=== PATIENT | female | born 1960 | race Caucasian/White ===

== ENCOUNTER 2022-07-08 14:16 | Outpatient (CLI) | payer BC, SELFPAY ==
[2022-07-08 19:39] LABS: Basophils Percent Auto 0.7 % (0.2-1.2); Eosinophils Absolute Auto 0.1 K/mm3 (0-0.3); Eosinophils Percent Auto 1.8 % (0-4.4); Hematocrit 40.1 % (37.0-47.0); Hemoglobin 12.8 g/dL (12.0-15.0); Immature Granulocyte Absolute 0.01 K/mm3 (0.00-0.031); Immature Granulocyte Percent A 0.2 % (0-0.5); Lymphocytes Absolute Auto 0.73 K/mm3 (0.9-3.2); Lymphocytes Percent Auto 16.5 % (18.3-44.2); Mean Corpuscular HGB Conc 31.9 g/dl (32-36); Mean Corpuscular Hemoglobin 30.4 pg (26-34); Mean Corpuscular Volume 95.2 fl (80-100); Mean Platelet Volume 10.2 fl (7.4-10.4); Monocytes Absolute Auto 0.4 K/mm3 (0.1-0.6); Monocytes Percent Auto 9.7 % (2.6-8.5); Neutrophils Absolute Auto 3.2 K/mm3 (1.3-6.7); Neutrophils Percent Auto 71.1 % (45.5-73.1); Platelet Count Result 265 k/mm3 (150-375); Red Blood Count 4.21 M/mm3 (4.2-5.4); Red Cell Distribution Width 13.2 % (11.5-14.5); White Blood Count 4.4 K/mm3 (4.5-10.0)
[2022-07-08 19:47] LABS: Alanine Aminotransferase 16 U/L (6-35); Albumin Level 4.4 g/dL (3.5-5.1); Alkaline Phosphatase 124 U/L (38-126); Anion Gap 7 mmol/L (8-16); Aspartate Amino Transferase 34 U/L (14-36); Bilirubin,Total 0.7 mg/dL (0.2-1.3); Blood Urea Nitrogen 14 mg/dL (7-17); Carbon Dioxide 30 mmol/L (22-30); Chloride 106 mmol/L (98-107); Cholesterol 147 mg/dL (0-200); Creatine Kinase 56 U/L (30-135); Estimated Glomerular Filt Rate > 60; Glucose 94 mg/dL (65-110); HDL Direct 54 mg/dL; Potassium 4.2 mmol/L (3.4-5.0); Sodium 143 mmol/L (137-145); Triglycerides 117 mg/dL (<150)
[2022-07-08 19:56] LABS: LDL Cholesterol Direct 58 mg/dL
[2022-07-08 20:30] LABS: Erythrocyte Sedimentation Rate 16 mm/hr (0-20)
== END 2022-07-08 14:17 | disposition home or self-care (01) ==
LOC: ANHBWCLAB 14:18
PROVIDERS: PCP Family Medicine; Visit Provider Family Medicine
DX: Z00.00 Encounter for general adult medical examination without abnormal findings (principal); M79.10 Myalgia, unspecified site
CPT/HCPCS: 36415; 80053; 80061; 82550; 84443; 85025; 85652; 86140

== ENCOUNTER 2023-09-02 11:51 | Outpatient (CLI) | payer BC, SELFPAY ==
[2023-09-02 19:04] LABS: Hematocrit 40.5 % (37.0-47.0); Hemoglobin 12.7 g/dL (12.0-15.0); Mean Corpuscular HGB Conc 31.4 g/dl (32-36); Mean Corpuscular Hemoglobin 30.5 pg (26-34); Mean Corpuscular Volume 97.1 fl (80-100); Platelet Count Result 235 k/mm3 (150-375); Red Blood Count 4.17 M/mm3 (4.2-5.4); Red Cell Distribution Width 13.1 % (11.5-14.5); White Blood Count 3.9 K/mm3 (4.5-10.0)
[2023-09-02 19:10] LABS: Alanine Aminotransferase 11 U/L (6-35); Albumin Level 4.5 g/dL (3.5-5.1); Alkaline Phosphatase 96 U/L (38-126); Anion Gap 5 mmol/L (4-12); Aspartate Amino Transferase 41 U/L (14-36); Bilirubin,Total 0.7 mg/dL (0.2-1.3); Blood Urea Nitrogen 17 mg/dL (7-17); Calcium 9.3 mg/dL (8.4-10.2); Carbon Dioxide 31 mmol/L (22-30); Chloride 104 mmol/L (98-107); Cholesterol 150 mg/dL (0-200); Estimated Glomerular Filt Rate > 60; Glucose 77 mg/dL (65-110); HDL Direct 54 mg/dL; Potassium 3.9 mmol/L (3.4-5.0); Sodium 140 mmol/L (137-145); Triglycerides 98 mg/dL (<150)
[2023-09-02 19:23] LABS: LDL Cholesterol Direct 68 mg/dL
== END 2023-09-02 11:52 | disposition home or self-care (01) ==
LOC: ANHBWCLAB 11:53
PROVIDERS: PCP Family Medicine; Visit Provider Family Medicine
DX: Z00.00 Encounter for general adult medical examination without abnormal findings (principal); I10 Essential (primary) hypertension; M79.10 Myalgia, unspecified site
CPT/HCPCS: 36415; 80053; 80061; 85027

== ENCOUNTER 2024-02-17 12:14 | Outpatient (CLI) | payer BC, SELFPAY ==
[2024-02-17 18:39] LABS: Hematocrit 38.8 % (37.0-47.0); Hemoglobin 12.3 g/dL (12.0-15.0); Mean Corpuscular HGB Conc 31.7 g/dl (32-36); Mean Corpuscular Hemoglobin 30.4 pg (26-34); Mean Platelet Volume 10.4 fl (7.4-10.4); Platelet Count Result 256 k/mm3 (150-375); Red Blood Count 4.04 M/mm3 (4.2-5.4); White Blood Count 4.5 K/mm3 (4.5-10.0)
[2024-02-17 19:01] LABS: Alanine Aminotransferase 15 U/L (6-35); Albumin Level 4.3 g/dL (3.5-5.1); Alkaline Phosphatase 100 U/L (38-126); Anion Gap 10 mmol/L (4-12); Aspartate Amino Transferase 46 U/L (14-36); Bilirubin,Total 0.6 mg/dL (0.2-1.3); Blood Urea Nitrogen 17 mg/dL (7-17); Calcium 9.2 mg/dL (8.4-10.2); Carbon Dioxide 27 mmol/L (22-30); Chloride 104 mmol/L (98-107); Estimated Glomerular Filt Rate > 60; Glucose 119 mg/dL (65-110); Potassium 3.8 mmol/L (3.4-5.0); Sodium 141 mmol/L (137-145)
== END 2024-02-17 12:15 | disposition home or self-care (01) ==
LOC: ANHBWCLAB 12:16
PROVIDERS: PCP Family Medicine; Visit Provider Family Medicine
DX: Z00.00 Encounter for general adult medical examination without abnormal findings (principal); I10 Essential (primary) hypertension; E66.9 Obesity, unspecified; G25.81 Restless legs syndrome; M79.10 Myalgia, unspecified site
CPT/HCPCS: 36415; 80053; 84443; 85027

== ENCOUNTER 2024-03-13 10:46 | Outpatient (CLI) | payer BC, SELFPAY ==
--- NOTE | ~2024-03-13 | US_ITS ---
Limited ABDOMINAL ULTRASOUND Ordering provider: Boyd Layton MD History: . R74.01 - Elevation of levels of liver transaminase levels . Comparison: None. FINDINGS: LIVER: Normal size. Fat infiltration of the liver.. No focal hepatic lesions or perihepatic fluid col lections are identified. GALLBLADDER: Gallbladder sludge is noted. No evidence for stones, gallbladder wall thickening or ronny cholecystic fluid collections. A negative sonographic Mixon's sign was noted. BILIARY DUCTS: No evidence for intra or extrahepatic biliary dilation. Common bile duct measures 3 mm in diameter which is within normal limits. PANCREAS: Partially seen. Otherwise, Normal echotexture and size. FREE FLUID: None. IMPRESSION: Gallbladder sludge. Fat infiltration of the liver. Otherwise, normal limited ultrasound of the abdom en. Reviewed, dictated and finalized at location A. NERY OPERATOR COKING IMPRESSION: Gallbladder sludge. Fat infiltration of the liver. Otherwise, normal limited u ltrasound of the abdomen.
== END 2024-03-13 10:47 | disposition home or self-care (01) ==
LOC: GOSHIMG 10:46
PROVIDERS: PCP Family Medicine; Visit Provider Family Medicine
DX: K82.8 Other specified diseases of gallbladder (principal); K76.0 Fatty (change of) liver, not elsewhere classified; R74.01 Elevation of levels of liver transaminase levels
CPT/HCPCS: 76705

== ENCOUNTER 2024-09-18 11:46 | Outpatient (CLI) | payer BC, SELFPAY ==
--- OUTSIDE RECORDS SUMMARY | 2024-09-18 12:04 | XMS_ITS | Clinical Summary ---
Author Organization [facility] Address [address] [place] [address] Care Team Providers Care Fashion Buying Internship Name Role Phone No, Physician Primary Care Provider [phone] Allergies No known active allergies Medications phentermine 37.5 mg capsule 37.5 MG ORALLY DAILY MUST ADMINISTER 30 MINUTES BEFORE OR 1-2 HOURS AFTER BREAKFAST Active Active Problems Problem Noted Date Diagnosed Date Closed left hip fracture, initial encounter 09/17 Closed fracture of neck of left femur 10/03/2023 Medical History Medical History Date Comments Hypertension Social History Tobacco Use Types Packs/Day Years Used Date Smoking Tobacco: Every Day Cigarettes AUDIT-C Answer Date Recorded Q1: How often do you have a drink containing alcohol? Never 10/04/2023 Q2: How many drinks containi ng alcohol do you have on a typical day when you are drinking? Patient does not drink Q3: How often do you have si x or more drinks on one occasion? Never 10/04/2023 Personal Safety Answer Date Recorded Have you ever been in or are you currently in a harmful physical or emotional relationship or is someone making you feel afraid or unsafe? 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 Gender Identity Female 10/05/2023 12:41 PM CDT Sexual Orientation Straight 10/05/2023 12 :41 PM CDT Obstetrics History Last Filed Vital Signs Vital Sign Reading Time Taken Comments Blood Pressure 125/60 10/06/2023 7:45 AM CDT Pulse 76 10/06/2023 7:45 AM CDT Temperature 37 C (98.6 F) 10/06/2023 7:45 AM CDT Respiratory Rate 16 10/06/2023 7:45 AM CDT Oxygen Saturation 97% 10/06/2023 7:45 AM CDT Inhaled Oxygen Concentration - - Weight 90.7 kg (200 lb) 10/03/2023 2:10 PM CDT Height 160 cm (5' 2.99) 10/03/2023 2:10 PM CDT Body Mass Index 35.44 10/03/2023 2:10 PM CDT Plan of Treatment Health Maintenance Due Date Last Done Comments Breast Cancer Screening-Mammogram 1960 Cervical Cancer Screening 1960 Colon Cancer Screening-Colonoscopy 1960 Depression Screening 1960 Hepatitis C Screening 1960 DTaP/Tdap/Td Vaccine (1 - Tdap) 1971 Hepatitis B Screening 1978 Regular Well Visit/Exam 18-64 1978 Pneumococcal vaccine <65 (1 of 2 - PCV) 1979 Zoster Vaccine (1 of 2) 2010 Influenza Vaccine (Season Ended) 2024 02/03/20 23, 02/18/2021 Medical Devices Implanted Type Area [employer]er Cook Device Identifier Shelf Expiration Date Model / Serial / Lot Synthes 7.3mm 8.2mm 2.9mm 80mm Cannulated Self Tap Self Drill 209.680 - [id number] Implanted:Qty: 1 on 10/04/2023 by Theo Johnston MD at [facility] Left: Hip Synthes I 209.680 / / Synthes 13mm Washer Orthopedic Stainless Steel Nonsterile 6.5/7/7.3mm 219.99 - [id number] Implanted:Qty: 3 on 10/04/2023 by Theo Johnston MD at [facility] Left: Hip Synthes I 219.99 / / Synthes 7.3mm 8.2mm 2.9mm 85mm Cannulated Self Tap Self Drill 209.685 - [id number] Implanted:Qty: 1 on 10/04/2023 by Theo Johnston MD at [facility] Left: Hip Synthes I 209.685 / / Synthes 7.3mm 8.2mm 2.9mm 75mm Cannulated Self Tap Self Drill 209.675 - [id number] Implanted:Qty: 1 on 10/04/2023 by Theo Johnston MD at [facility] Left: Hip Synthes I 209.125 / / Insurance [facility] [employer] OOS [employer] OOS [employer] [facility] OOS WORK[employer] COMPENSATION GENERIC Advance Directives For more information, please contact: [phone] * Full Code (Latest Code Status on File) Date Activated Date Inactivated Comments 10/03/2023 2:27 PM 10/06/2023 3:06 PM Care Teams Fashion [employer]ying Internship Relationship Specialty Start Date End Date No, Physician PCP - General 10/14/21
--- OUTSIDE RECORDS SUMMARY | 2024-09-18 12:04 | XMS_ITS | Referral Summary ---
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 Gender Identity Female 10/05/2023 12:41 PM CDT Sexual Orientation Straight 10/05/2023 12 :41 PM CDT Last Filed Vital Signs Vital Sign Reading [...] 10/03/2023 2:10 PM CDT Plan of Treatment Not on file Medical Devices Implanted Type Area As400 Operator Device Identifier Shelf Expiration Date Model / Serial / Lot Synthes 7.3mm 8.2mm 2.9mm 80mm Cannulated Self Tap Self Drill 209.680 - [id number] Implanted:Qty: 1 on 10/04/2023 by Theo Johnston MD at [facility] Left: Hip Synthes I 209.680 / / Synthes 13mm Washer Orthopedic Stain[employer] Nonsterile 6.5/7/7.3mm 219.99 - [id number] Implanted:Qty: 3 on 10/04/2023 by Theo Johnston MD at [facility] Left: Hip Synthes I 219.99 / / Synthes 7.3mm 8.2mm 2.9mm 85mm Cannulated Self Tap Self Drill 209.685 - [id number] Implanted:Qty: 1 on 10/04/2023 by Theo Johnston MD at [facility] Left: Hip Synthes I 209.685 / / Synthes 7.3mm 8.2mm 2.9mm 75mm Cannulated Self Tap Self Drill 209.675 - [id number] Implanted:Qty: 1 on 10/04/2023 by Theo Johnston MD at [facility] Left: Hip Synthes I 209.675 / / Insurance [facility] BLUE ACCESS OOS BLUE ACCESS OOS [employer] ACC[employer] OOS WORKERS COMPENSATION GENERIC Advance Directives For more information, please contact: [phone] * Full Code (Latest Code Status on File) Date Activated Date Inactivated Comments 10/03/2023 2:27 PM 10/06/2023 3:06 PM Care Teams Bench Carpenter Relationship Specialty Start Date End Date No, Physician PCP - General 10/14/21
[2024-09-18 20:24] LABS: Basophils Absolute Auto 0.1 K/mm3 (0.0-0.1); Basophils Percent Auto 1.2 % (0.2-1.2); Eosinophils Absolute Auto 0.1 K/mm3 (0-0.3); Eosinophils Percent Auto 2.7 % (0-4.4); Hematocrit 40.6 % (37.0-47.0); Hemoglobin 12.6 g/dL (12.0-15.0); Immature Granulocyte Absolute 0.01 K/mm3 (0.00-0.031); Immature Granulocyte Percent A 0.2 % (0-0.5); Lymphocytes Absolute Auto 1.11 K/mm3 (0.9-3.2); Lymphocytes Percent Auto 27.1 % (18.3-44.2); Mean Corpuscular Hemoglobin 30.1 pg (26-34); Mean Corpuscular Volume 97.1 fl (80-100); Mean Platelet Volume 10.1 fl (7.4-10.4); Monocytes Absolute Auto 0.4 K/mm3 (0.1-0.6); Monocytes Percent Auto 9.3 % (2.6-8.5); Neutrophils Absolute Auto 2.4 K/mm3 (1.3-6.7); Neutrophils Percent Auto 59.5 % (45.5-73.1); Platelet Count Result 246 k/mm3 (150-375); Red Blood Count 4.18 M/mm3 (4.2-5.4); Red Cell Distribution Width 14.1 % (11.5-14.5); White Blood Count 4.1 K/mm3 (4.5-10.0)
[2024-09-18 20:38] LABS: Alanine Aminotransferase 20 U/L (6-35); Albumin Level 4.3 g/dL (3.5-5.1); Alkaline Phosphatase 99 U/L (38-126); Anion Gap 5 mmol/L (4-12); Aspartate Amino Transferase 56 U/L (14-36); Bilirubin,Total 0.5 mg/dL (0.2-1.3); Blood Urea Nitrogen 20 mg/dL (7-17); Calcium 9.4 mg/dL (8.4-10.2); Carbon Dioxide 30 mmol/L (22-30); Chloride 105 mmol/L (98-107); Cholesterol 158 mg/dL (0-200); Estimated Glomerular Filt Rate > 60; Glucose 95 mg/dL (65-110); HDL Direct 77 mg/dL; Magnesium 2.4 mg/dL (1.6-2.3); Potassium 4.2 mmol/L (3.4-5.0); Sodium 140 mmol/L (137-145); Triglycerides 59 mg/dL (<150)
[2024-09-18 20:47] LABS: Vitamin D 25 Hydroxy 50.5 ng/mL
[2024-09-18 20:48] LABS: LDL Cholesterol Direct 52 mg/dL
[2024-09-18 21:41] LABS: Hemoglobin A1C 5.3 % (<5.7)
== END 2024-09-18 11:47 | disposition home or self-care (01) ==
PROVIDERS: PCP Family Medicine; Visit Provider Family Medicine
DX: E66.9 Obesity, unspecified (principal); I10 Essential (primary) hypertension; R74.01 Elevation of levels of liver transaminase levels; Z00.00 Encounter for general adult medical examination without abnormal findings; G25.81 Restless legs syndrome
CPT/HCPCS: 36415; 80053; 80061; 82172; 82306; 82607; 83036; 83735; 85025